=== PATIENT | male | born 1995 | race Caucasian/White ===

== ENCOUNTER 2017-08-03 13:19 | Emergency (ER) | payer BC ==
[2017-08-03 13:30] VITALS: RESP 16; TEMP 98.1
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
[2017-08-03 15:12] VITALS: BP 121/71; PULSE 79; O2SAT 94
== END 2017-08-03 15:17 | disposition home or self-care (01) ==
DX: S02.2XXA Fracture of nasal bones, initial encounter for closed fracture (principal); S00.83XA Contusion of other part of head, initial encounter; F17.200 Nicotine dependence, unspecified, uncomplicated; Y09 Assault by unspecified means